=== PATIENT | female | born 1965 | race Caucasian/White ===

== ENCOUNTER → 2024-01-10 14:31 | Outpatient (REF) | payer BC, SELFPAY | LOC: HWRAD 14:31 | PROVIDERS: ATTENDING PHYSICIAN Internal Medicine | DX: L98.9 Disorder of the skin and subcutaneous tissue, unspecified (principal) | CPT/HCPCS: 73140 ==

== ENCOUNTER 2025-01-25 23:55 | Inpatient (IN) | payer OTHER, SELFPAY ==
[2025-01-25 17:09] VITALS: BP 128/63
[2025-01-25 17:36] LABS: % Basophils 0.4 % (0-2); % Eosinophils 0.5 % (0-6); % Immature Granulocytes 0.1 % (0-0.5); % Monocytes 6.8 % (1.7-9.3); % Neutrophils 72.2 % (42.2-75.2); Absolute Eosinophils 0.1 10^3/uL (0-0.7); Absolute Lymphocytes 1.9 10^3/uL (1.2-3.4); Absolute Monocytes 0.7 10^3/uL (0.1-0.6); Absolute Neutrophils 6.9 10^3/uL (1.4-6.5); Hematocrit 35.6 % (37.0-47.0); Hemoglobin 12.5 g/dL (12.0-16.0); Mean Corp Hgb Conc. 35.1 g/dL (33.0-37.0); Mean Corpuscular Hgb 32.6 pg (27.0-31.0); Mean Corpuscular Volume 92.7 fL (81.0-99.0); Mean Platelet Volume 8.7 fL (7.4-10.4); Nucleated Red Blood Cells % 0 %; Platelet Count 190 10^3/uL (130-400); Red Blood Cell Count 3.84 10^6/uL (4.20-5.40); Red Cell Dist. Width 11.9 % (11.5-14.5); Urine Albumin 3+ (Neg - Trace); Urine Bilirubin 2+ (Negative); Urine Character Slightly Cloudy (Clear); Urine Color Yellow; Urine Glucose Negative (Negative); Urine Ketone Negative (Negative); Urine Leukocyte 3+ (Negative); Urine Nitrite Positive (Negative); Urine Occult Blood 4+ (Negative); Urine Specific Gravity 1.025 (<1.030); Urine Urobilinogen 3+ (Neg - 1+); White Blood Cell Count 9.5 10^3/uL (4.8-10.8)
[2025-01-25 17:49] LABS: ALT (SGPT) 22 U/L (0-35); AST (SGOT) 25 U/L (14-36); Albumin 4.8 g/dl (3.5-5.0); Alkaline Phosphatase 65 U/L (38-126); Blood Urea Nitrogen 9 mg/dl (7-17); Calcium 9.3 mg/dl (8.4-10.2); Carbon Dioxide 25 mmol/L (22-30); Chloride 101 mmol/L (98-107); Glucose 104 mg/dl (70-99); Potassium 3.9 mmol/L (3.5-5.1); Sodium 136 mmol/L (135-145); Total Bilirubin 0.8 mg/dl (0.2-1.3); Total Protein 7.1 g/dl (6.3-8.2); eGFR > 60.00
[2025-01-25 17:50] LABS: Urine Squamous Cell 0-2 /LPF (Few)
[2025-01-25 17:51] LABS: Urine Bacteria Few (Negative); Urine White Cell 80-90 /HPF (0-5)
--- NOTE | 2025-01-25 20:45 | ED.GENMED ---
History of Present Illness
General
Chief Complaint: Abdominal Symptoms
Source: patient and spouse
Exam Limitations: none
Time Seen by Provider: 01/25/25 20:29
Nursing documentation reviewed up to this point in time: agreed with
History of Present Illness
History of Present Illness:
59-year-old female dysuria frequency diagnosed with UTI given Macrobid and that Cipro feeling pain near her urethra, also mild on her right flank she has had kidney stones before she had a urologic procedure from a urologic specialist a few years
ago on the right ureter, no fevers nausea without vomiting, drink a lot of fluids, earlier today with cranberry juice
Past History
Past History
ED Past Medical History: Arrthythmia (SVT) and Psychiatric (Anxiety, insomnia)
ED Past Surgical History: Cardiac (Radiofrequency ablation for SVT August 2011) and Urological
Social History
Tobacco: Non-smoker
Alcohol: Occasional
Drug: None
Personal:
Living: with family
Employment: Employed
Family History
Family History: CAD
Review of Systems
Review of Systems
All Other Systems: Not applicable
Constitutional: Denies fever or fatigue
Respiratory: Reports no symptoms
Cardiac: Reports no symptoms
ABD/GI: Reports abdominal pain
: Reports dysuria, frequency, flank pain and urgency
Phy Exam
Physical Exam
Physical Exam:
Physical Exam
General: 59 female nontoxic
Neck: No jaw
Heart: s1/s2 regular rate and rhythm, no murmur. equal radial pulses.
Lungs: no acute respiratory distress. clear bilaterally
Abdomen: Minimal suprapubic and right flank tenderness
Neuro: alert and oriented. no focal neurological deficits
Skin: no rash
Psychiatric: well kept. interactive and cooperative
Extremities: no edema. no calf tenderness. negative homans. good distal pulses
Course
Orders/Labs/Results
Orders:
Orders
01/25/25 17:26
Complete Blood Count/With Diff Urgent
Comprehensive Metabolic Panel Urgent
Urinalysis Reflex To Culture Urgent
Date Specimen was Collected: 01/25/25
Time Specimen was Collected: 17:17
Urine Microscopic Reflex Cult Urgent
Urine Culture Urgent
SUJATA Source: U
Specimen Description:
Date Specimen was Collected: 01/25/25
Time Specimen was Collected: 17:17
01/25/25 20:42
CT Abd/pel Without Iv Or Oral Urgent
Comment:
Reason For Exam: flakn pain uti, sp surgery on ureter
0.9% Sodium Chloride 1000 ml [Nss] 1,000 ml IV BOLUS
Ketorolac [Toradol] 30 mg IV NOW STA
01/25/25 20:49
Bladder Scan- Treatment ONCE
01/25/25 22:18
Acetaminophen 1000MG/100Ml [Ofirmev] 1,000 mg in 100 ml IV ONCE
Acetaminophen IV Indication:: ED Narcotic Naive Pt-ONCE
CefTRIAXone [Rocephin] 1,000 mg IV NOW STA
01/25/25 22:19
Diazepam [Valium] 5 mg PO NOW STA
Abnormal Lab Results
01/25/25
17:26
RBC 3.84 L 10^6/uL
(4.20-5.40)
Hct 35.6 L %
(37.0-47.0)
MCH 32.6 H pg
(27.0-31.0)
Absolute Neuts (auto) 6.9 H 10^3/uL
(1.4-6.5)
Absolute Monos (auto) 0.7 H 10^3/uL
(0.1-0.6)
Lymphocytes % 20.0 L %
(20.5-51.1)
Creatinine 0.5 L mg/dL
(0.6-1.0)
Glucose 104 H mg/dl
(70-99)
Ur Occult Blood Reflex 4+ A
(Negative)
Urine Nitrite (Reflex) Positive A
(Negative)
Urine Bilirubin 2+ A
(Negative)
Urine Urobilinogen 3+ A
(Neg - 1+)
Leukocyte Esterase Rfl 3+ A
(Negative)
Urine RBC 11-15 A /HPF
(0-2)
Urine WBC (Reflex) 80-90 A /HPF
(0-5)
Urine Bacteria (Reflex) Few A
(Negative)
Urine Albumin (Reflex) 3+ A
(Neg - Trace)
01/25/25 17:26
01/25/25 17:26
Vital Signs
Initial and Last Documented VS:
Initial Vital Signs
Temp Pulse Resp BP Pulse Ox
97.6 F 65 18 128/63 100
01/25/25 17:09 01/25/25 17:09 01/25/25 17:09 01/25/25 17:09 01/25/25 17:09
Last Documented Vital Signs
Temp Pulse Resp BP Pulse Ox
97.6 F 63 16 121/74 100
01/25/25 17:09 01/25/25 22:01 01/25/25 22:01 01/25/25 22:01 01/25/25 22:01
MDM/Problems Addressed
Differential Diagnosis Includes:
Stone UTI Harshal retention
Chronic conditions affecting care: Kidney disease
Acute Exacerbation and/or Progression of Chronic Illness: Kidney disease
*Critical Care Note
Total Time (30-74mins, 75-104mins- exclusive of procedures): Not Applicable
Update Note
Update Note:
Update labs noted urine noted she has been taking Azo [id number]-fazfgit, she had Macrobid and few doses of Cipro, CT report reviewed reviewed with patient and patient with outpatient treatment reviewed with her she prefers to stay in the hospital
states she feels unwell, does have some signs of ascending urinary tract infection to have prior surgery on the right side, fortunately there is no obstructing stone will switch to ceftriaxone
ED Attending Note
-
Portions of this chart may have been created with voice recognition software.� Occasional wrong word or��sound alike� substitutions may have occurred due to the inherent limitations of voice recognition software.
Discharge Plan
Departure
Patient Disposition: Admit
Date of Disposition: 01/25/25
Time of Disposition: 23:03
Admit to: Med/Surg
Presentation/result/management discussed w/ accepting MD/DO: Hospitalist
Patient with high blood pressure during this ER visit?: No
Condition: Fair
Discharge Problem:
Ascending urinary tract infection, Hydronephrosis
Prescriptions:
No Action
ATENOLOL
25 mg PO HS
valerian 400 MG capsule
400 mg PO HS
Interventions
Interventions:
*Risk Screen - Suicide Last Done: 01/25/25 22:01
*General Assessment Last Done: 01/25/25 22:01
*Neglect/Abuse Screening Last Done: 01/25/25 22:01
*ED COVID-19 Vaccine History Last Done: 01/25/25 22:01
IP-Nkbodm-Knxbvqytuq Assessment Last Done: 01/25/25 22:01
Discharge Date and Time
Print Language: KAZAKH
[2025-01-25] MEDS: TORADOL 30 MG IV (20:59)
[2025-01-25] MEDS: NSS 1000 IV (21:00)
[2025-01-25 22:01] VITALS: BP 121/74
[2025-01-25] MEDS: OFIRMEV 100 IV (22:27)
[2025-01-25] MEDS: ROCEPHIN 1000 MG IV (22:27)
[2025-01-25] MEDS: VALIUM 5 MG PO (22:28)
--- NOTE | 2025-01-25 23:25 | HPS.HSE ---
Family Physician
-
Family Physician: Kamille Harris
Chief Complaint
-
Back pain 4 days ago, right flank pain x 3 days with urinary pressure and nausea
History of Present Illness
59-year-old female who states approximately 4 days ago she had sudden pain in her lower back she was unsure of what she did. She then started developing urinary pressure with lower right lateral flank pain over the last 3 days along with nausea and
soft stools. She called her PCP who placed her on ciprofloxacin and Macrobid she took 2 tablets of Cipro at 5 PM and Macrobid which she also took at 5 PM. She reports she has history of kidney stones right sided 17 years ago which was thought to
leave scar tissue and then required a right sided pyeloplasty [address] Kip Caraballo at [facility]. She denies fever, vomiting, diarrhea, chest pain, palpitations, cough, shortness of breath, abdominal pain, headache.
She has past medical history of renal calculi 17 years ago, SVT status post heart ablation, renal calculi 17 years ago, pyeloplasty October 2019, seasonal allergies.
Medical History
Past Medical History
Past Medical History: Reports Other
Additional Past Medical History:
renal calculi 17 years ago
SVT status post heart ablation
renal calculi 17 years ago,
Right sided pyeloplasty October 2019
seasonal allergies.
Past Surgical History: Reports Other
Additional Past Surgical History:
Right sided pyeloplasty October 2019
Breast implants bilateral 2002
Social History
Tobacco: Non-smoker
Alcohol: Daily (1 glass of wine has not had any over the past 40 days during Lent)
Personal:
Living: With Family
Employment: Employed
Family History
Family History: Other (Father age 45 DC mother living age 83 history of dementia)
Allergies / Home Medications
Allergies reflects when Allergies were last updated in [employer].
Home Medications with original date entered in [employer]
Allergy/Medication List:
Allergies
Allergy/AdvReac Type Severity Reaction Status Date / Time
erythromycin base Allergy Mild Nausea / Verified 01/25/25 17:09
[From E-Mycin] Vomiting
Home Medications
Hydroeye 1 cap PO DAILY 01/25/25
acetaminophen 500 mg tablet 1,000 mg PO Q6HPRN PRN mild pain 01/25/25
ascorbic acid (vitamin C) 500 mg tablet (Vitamin C) 500 mg PO DAILY 01/25/25
cetirizine 10 mg tablet (Zyrtec) 10 mg PO DAILY 01/25/25
cholecalciferol (vitamin D3) 125 mcg (5,000 unit) tablet (Vitamin D3) 125 mcg PO DAILY 01/25/25
ciprofloxacin HCl 250 mg tablet 250 mg PO BID 01/25/25
cyanocobalamin (vitamin B-12) 100 mcg tablet 100 mcg PO DAILY 01/25/25
estradiol 10 mcg vaginal tablet (Yuvafem) 10 mcg vaginal [id number] PRN feeling urgency 01/25/25
magnesium oxide 400 mg PO DAILY 01/25/25
nitrofurantoin monohydrate/macrocrystals 100 mg capsule 100 mg PO BID 01/25/25
therapeutic multivitamin 1 tab PO DAILY 01/25/25
Review of Systems
-
History Source: Patient and Family ( at bedside)
A 12 point ROS was completed and negative except as noted: Yes
Constitutional: Denies Fever, Fatigue or Chills
EENT: Denies Sore Throat or Runny Nose
Respiratory: Denies Cough or Trouble Breathing
Cardiac: Denies Chest Pain, Diaphoresis, Palpitations or Syncope
Abdomen/GI: Reports Nausea and Other (Loose stool, right flank pain); Denies Abdominal Pain, Vomiting, Diarrhea, Constipated, Bloody Stools, Black Stools or Anorexia
: Reports Frequency, Flank Pain (Right) and Urgency (With pressure); Denies Dysuria, Incontinence, Difficulty Voiding, Bleeding, Dark Urine or Discharge
Musculoskeletal: Denies Joint Pain or Edema
Skin: Denies Itching or Rash
Neurological: Denies Dizzy, Headache or Weakness
Endocrine: Reports No Symptoms
Hematologic/Lymphatic: Reports No Symptoms
Psych: Reports Calm
Physical Exam
Vital Signs
Vital Signs
Temp Pulse Resp BP Pulse Ox
97.6 F 63 16 121/74 100
01/25/25 17:09 01/25/25 22:01 01/25/25 22:01 01/25/25 22:01 01/25/25 22:01
Physical Exam
General: Conversant and Other; No Fever or Chills
HEENT: NormoCephalic, Anicteric, Moist mucous membranes, PERRLA, [place] Conjunctivae and No Ptosis
Respiratory: Clear; No Wheezes, Rales, Rhonchi or Crackles
Cardiac: S1/S2 and Regular Rhythm; No Murmur, Rub, Gallop or Peripheral Edema
GI: Soft, Non Distended, Normal Bowel Sounds, Tender (Right posterior/lateral lower flank) and No Hepatosplenomegaly
Rectal: Deferred by Provider
Genito-urinary: Costovertebral angle tend (Right posterior lower lateral flank on palpation)
Musculoskeletal: No Clubbing, No Cyanosis and No Edema
Skin: Warm and Dry; No Rash or Jaundice
Neuro: AO x 3, No Motor Deficits, Nonfocal/grossly intact, Cranial Nerves Intact and No Sensory Deficits; No Slurred Speech, Facial Droop, Tremors or Sedated
Psych: Calm
Laboratory Results
-
01/25/25 17:26
01/25/25 17:
Laboratory Results
Total Bilirubin 0.8 mg/dl (0.2-1.3) 01/25/25 17:
AST 25 U/L (14-36) 01/25/25 17:
ALT 22 U/L (0-35) 01/25/25:
Alkaline Phosphatase 65 U/L (38-126) 01/25/25 17:26
Data Reviewed
-
CT Scan: Report Reviewed by me
Lab Data: Labs Reviewed by me
Impression/Plan
-
Impression/plan:
Admit to [facility]
#Symptomatic UTI/pyelonephritis with mild right sided hydroureteronephrosis
History of right sided pyeloplasty [address] Kip Caraballo at [facility]
Patient took 2 tablets ciprofloxacin 5 PM, 1 tablet Macrobid 5 PM today 01/25/2025
-UA positive nitrates leukocytes WBC 80-90 bacteria few
- Follow urine culture
- Consult urology
-IV Rocephin
-IV NSS 1 L given in ER, continue IV NSS 100 cc/h
-IV Toradol mild pain, Dilaudid moderate pain, Tylenol for fever
-Valium as needed spasm
- Follow CBC, CMP
CT abdomen pelvis without IV or oral contrast:
1. Mild right-sided hydroureteronephrosis with diffuse urothelial thickening which likely represents infection. There is no definite obstructing stone visualized
2. Mild circumferential wall thickening of the urinary bladder likely secondary to cystitis recommend correlation with urinalysis
#SVT status post heart ablation
#Seasonal allergies
- Continue Zyrtec 10 mg daily
#Hypomagnesemia
Continue Mag-Ox 400 mg daily
DVT prophylaxis
SCDs
Full code
--- NOTE | 2025-01-25 23:46 | W.PN.UPDATE ---
Update Note
Progress Note Update
This is an addendum to H&P written by Rebekah Multani on 01/25/2025. Patient seen and examined independently with MANAGER MAIL.
59-year-old female past medical history of SVT, anxiety, insomnia, nephrolithiasis with ureteral scarring with history of pyeloplasty, presenting with urinary frequency and discomfort with urination and was diagnosed with UTI and treated with
ciprofloxacin without improvement. She has right flank pain. No fever but has nausea without vomiting.
Urinalysis indicative of infection. CT abdomen pelvis shows mild right-sided hydroureteronephrosis with diffuse urothelial thickening likely representing infection without definitive obstructive stone, mild circumferential wall thickening of the
urinary bladder likely secondary to cystitis.
Presentation consistent with acute cystitis/right-sided pyelonephritis.
Urine culture pending. IV fluids. Ceftriaxone. Urology consulted.
[2025-01-26 01:35] VITALS: BP 120/71; BMI 19.5
[2025-01-26] MEDS: NSS 1000 IV (01:52)
--- NOTE | 2025-01-26 06:21 | CONS.URO ---
Consultation
-
Date/Time Consultation Performed: 01/26/2519
Performing Provider: Cas
Reason for Consultation: hydronephrosis
Medical History
History of Present Illness
ED admission note: '59-year-old female who states approximately 4 days ago she had sudden pain in her lower back she was unsure of what she did. She then started developing urinary pressure with lower right lateral flank pain over the last 3 days
along with nausea and soft stools. She called her PCP who placed her on ciprofloxacin and Macrobid she took 2 tablets of Cipro at 5 PM and Macrobid which she also took at 5 PM. She reports she has history of kidney stones right sided 17 years ago
which was thought to leave scar tissue and then required a right sided pyeloplasty [address] Kip Caraballo.'
'several UTIs'
Past Medical History
Past Medical History: Arrhythmia (SVT s/p ablation)
Past Surgical History: Other (Right sided pyeloplasty October 2019; Breast implants bilateral 2002)
Social History
Personal:
Living: With Family
Family History
Family History: Reviewed & Not Pertinent
Allergies/Home Medications
Allergies
Allergy/AdvReac Type Severity Reaction Status Date / Time
erythromycin base Allergy Mild Nausea / Verified 01/25/25 17:09
[From E-Mycin] Vomiting
Home Medications
�Medication �Instructions �Recorded �Confirmed �Type
Hydroeye 1 cap PO DAILY 01/25/25 01/25/25 History
acetaminophen 500 mg tablet 1,000 mg PO Q6HPRN PRN mild pain 01/25/25 01/25/25 History
ascorbic acid (vitamin C) 500 mg 500 mg PO DAILY 01/25/25 01/25/25 History
tablet (Vitamin C)
cetirizine 10 mg tablet (Zyrtec) 10 mg PO DAILY 01/25/25 01/25/25 History
cholecalciferol (vitamin D3) 125 125 mcg PO DAILY 01/25/25 01/25/25 History
mcg (5,000 unit) tablet (Vitamin
D3)
ciprofloxacin HCl 250 mg tablet 250 mg PO BID 01/25/25 01/25/25 History
cyanocobalamin (vitamin B-12) 100 100 mcg PO DAILY 01/25/25 01/25/25 History
mcg tablet
estradiol 10 mcg vaginal tablet 10 mcg vaginal [id number] PRN feeling 01/25/25 01/25/25 History
(Yuvafem) urgency
magnesium oxide 400 mg PO DAILY 01/25/25 01/25/25 History
nitrofurantoin 100 mg PO BID 01/25/25 01/25/25 History
monohydrate/macrocrystals 100 mg
capsule
therapeutic multivitamin 1 tab PO DAILY 01/25/25 01/25/25 History
Physical Exam
Vital Signs
Vital Signs
Temp Pulse Resp BP Pulse Ox
97.8 F 76 17 120/71 96
01/26/25 01:35 01/26/25 01:35 01/26/25 01:35 01/26/25 01:35 01/26/25 01:35
Physical Exam
adult female
General: Well Developed, Well Nourished and No Apparent Distress
GI: Soft
Genito-urinary: No Costovertebral Tend
Skin: Warm
Neuro: Awake and Alert
Psych: Calm and Intact Judgement
Assessment / Plan
-
Presumptive UTI
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
normal renal function
Rec: obtain Urine Cx results from Dr Deloris Harris's office to govern optimal antibiosis;
no current indication for urosurgical intervention
Data Reviewed
-
CT Scan: Image personally visualized and interpreted and Discussed with Patient
Lab Data: Labs Reviewed and Discussed with Patient
Old Records: Reviewed
[2025-01-26 07:15] LABS: % Basophils 0.4 % (0-2); % Eosinophils 1.9 % (0-6); % Immature Granulocytes 0.1 % (0-0.5); % Lymphocytes 25.9 % (20.5-51.1); % Monocytes 9.6 % (1.7-9.3); % Neutrophils 62.1 % (42.2-75.2); Absolute Eosinophils 0.1 10^3/uL (0-0.7); Absolute Lymphocytes 1.8 10^3/uL (1.2-3.4); Absolute Monocytes 0.7 10^3/uL (0.1-0.6); Absolute Neutrophils 4.3 10^3/uL (1.4-6.5); Hematocrit 32.2 % (37.0-47.0); Hemoglobin 11.2 g/dL (12.0-16.0); Mean Corp Hgb Conc. 34.8 g/dL (33.0-37.0); Mean Corpuscular Hgb 32.7 pg (27.0-31.0); Mean Corpuscular Volume 93.9 fL (81.0-99.0); Nucleated Red Blood Cells % 0 %; Platelet Count 179 10^3/uL (130-400); Red Blood Cell Count 3.43 10^6/uL (4.20-5.40); Red Cell Dist. Width 11.9 % (11.5-14.5); White Blood Cell Count 6.9 10^3/uL (4.8-10.8)
[2025-01-26 07:45] LABS: ALT (SGPT) 17 U/L (0-35); AST (SGOT) 21 U/L (14-36); Albumin 3.5 g/dl (3.5-5.0); Alkaline Phosphatase 63 U/L (38-126); Blood Urea Nitrogen 6 mg/dl (7-17); Calcium 8.8 mg/dl (8.4-10.2); Carbon Dioxide 23 mmol/L (22-30); Chloride 111 mmol/L (98-107); Estimated Creatinine Clearance 92 ml/min; Glucose 91 mg/dl (70-99); Potassium 3.6 mmol/L (3.5-5.1); Sodium 140 mmol/L (135-145); Total Bilirubin 0.8 mg/dl (0.2-1.3); Total Protein 5.8 g/dl (6.3-8.2); eGFR > 60.00
[2025-01-26 07:55] VITALS: BP 113/73
[2025-01-26] MEDS: VITAMIN B-12 100 MCG PO (08:53)
[2025-01-26] MEDS: THERAGRAN 1 TABLET PO (08:53)
[2025-01-26] MEDS: VITAMIN C 500 MG PO (08:53)
[2025-01-26] MEDS: VITAMIN D3 (cholecalciferol) 125 MCG PO (08:53)
[2025-01-26] MEDS: ZYRTEC 10 MG PO (08:53)
[2025-01-26] MEDS: MAGNESIUM OXIDE 500 MG PO (08:53)
--- NOTE | 2025-01-26 11:22 | W.PN.HOSP.TC ---
Today's Communication/Plan
-
see PN
Assessment / Plan
Assessment / Plan
59yo F with PMHx of nephrolithiasis with R sided pyeloplasty in 2019 came with worsening suprapubic and R flank pain, similar to the one when she had a stone passing, Ucx were sent by her PCP in the moring before admission and patient was started on
Nitrofurantoin and later Cipro for cystitis, however since symptoms worsened - patient was sent to ED. CT showed R hydro without obstruction and urology deemed these to chronic postOP changes and no surgical mgmt inicated.
A/P:
#Complicated UTI, pyelonephritis
#Chromnic R hydronephrosis
Urology followed - no Sx needed
Ceftriaxone and follow Ucx from [facility] - patient has a web portal access to results
Ucx in ED also sent
Repeat UA in 2-3 weeks with PCP
[facility]
#Hx of SVT s/p ablation
#Atopic d/o
#Hypomagnesemia
cont home meds
DVT ppxlovenox
Full code
I have spent at least 57min reviewing chart, test results, communication with consultants, family and providing direct patient care
Anticipated Discharge: 24 - 48 hours
Subjective/Interval History
-
Date of Service: January 26, 2025
Objective Data
-
Labs:
Laboratory Results
01/26/25
06:55
WBC 6.9
Hgb 11.2 L
Hct 32.2 L
Plt Count 179
Sodium 140
Potassium 3.6
Chloride 111 H
Carbon Dioxide 23
BUN 6 L
Creatinine 0.5 L
Glucose 91
Calcium 8.8
Total Bilirubin 0.8
AST 21
ALT 17
Alkaline Phosphatase 63
Vital Signs:
Vital Signs
Temp Pulse Resp BP Pulse Ox
98.6 F 69 16 113/73 98
01/26/25 07:55 01/26/25 07:55 01/26/25 07:55 01/26/25 07:55 01/26/25 07:55
I&O
01/25/25 01/26/25 01/27/25
06:59 06:59 06:59
Intake Total 0 / 0
Output Total 350 / 350
Balance -350 / -350
Review of Systems
-
History Source: Patient
All other systems: Reviewed and negative
Genitourinary: Reports Dysuria
Physical Exam
-
General: No Apparent Distress
HEENT: Normocephalic
GI: Soft and Tender (suprapubic)
Genito-urinary: Costovertebral Angle Tend (R)
Neuro: Awake, Alert, Oriented and AO x 3
Psych: Calm
[2025-01-26] MEDS: VALIUM 2 MG PO ×2 (11:28→22:00)
[2025-01-26] MEDS: TYLENOL 1000 MG PO ×2 (12:40→21:59)
--- NOTE | 2025-01-26 15:14 | CM ---
Initial assessment completed. Admitted for back pain, right flank pain x 3 days with urinary pressure and nausea.
Patient resides w/ spouse in [facility]- 7 steps to enter. Patient is independent w/ ambulation, no device required. Independent w/ ADLs. Patient has shower chair, more so for convenience. Denies SNF/HC hx. No current OP or home services at this time.
Address, point of contact and insurance verified
PCP: Kamille Harris
Pharmacy: [facility]
Plan: Home; no needs likely
[2025-01-26 15:57] VITALS: BP 114/68
[2025-01-26] MEDS: STERILE WATER FOR INJECTION 10 ML IV (21:59)
[2025-01-26] MEDS: ROCEPHIN 1000 MG IV (21:59)
[2025-01-26 23:03] VITALS: BP 100/69
[2025-01-27] MEDS: TYLENOL 1000 MG PO ×2 (04:32→11:31)
[2025-01-27 06:27] LABS: Hematocrit 33.9 % (37.0-47.0); Hemoglobin 11.6 g/dL (12.0-16.0); Mean Corp Hgb Conc. 34.2 g/dL (33.0-37.0); Mean Corpuscular Hgb 32.2 pg (27.0-31.0); Mean Corpuscular Volume 94.2 fL (81.0-99.0); Platelet Count 185 10^3/uL (130-400); White Blood Cell Count 4.8 10^3/uL (4.8-10.8)
[2025-01-27 07:11] LABS: % Basophils 0.8 % (0-2); % Eosinophils 5.5 % (0-6); % Immature Granulocytes 0.2 % (0-0.5); % Lymphocytes 51.4 % (20.5-51.1); % Monocytes 9.1 % (1.7-9.3); Absolute Eosinophils 0.3 10^3/uL (0-0.7); Absolute Lymphocytes 2.4 10^3/uL (1.2-3.4); Absolute Monocytes 0.4 10^3/uL (0.1-0.6); Absolute Neutrophils 1.6 10^3/uL (1.4-6.5); Nucleated Red Blood Cells % 0 %
[2025-01-27 07:23] VITALS: BP 128/74
[2025-01-27] MEDS: VITAMIN C 500 MG PO (08:18)
[2025-01-27] MEDS: VITAMIN B-12 100 MCG PO (08:18)
[2025-01-27] MEDS: MAGNESIUM OXIDE 500 MG PO (08:18)
[2025-01-27] MEDS: ZYRTEC 10 MG PO (08:18)
[2025-01-27] MEDS: THERAGRAN 1 TABLET PO (08:18)
[2025-01-27] MEDS: VITAMIN D3 (cholecalciferol) 125 MCG PO (08:18)
--- NOTE | 2025-01-27 10:59 | W.PN.HOSP.TC ---
Today's Communication/Plan
-
with worse R flank pain - repeat BMP to eval Cr
Assessment / Plan
Assessment / Plan
59yo F with PMHx of nephrolithiasis with R sided pyeloplasty in 2019 came with worsening suprapubic and R flank pain, similar to the one when she had a stone passing, Ucx were sent by her PCP in the moring before admission and patient was started on
Nitrofurantoin and later Cipro for cystitis, however since symptoms worsened - patient was sent to ED. CT showed R hydro without obstruction and urology deemed these to chronic postOP changes and no surgical mgmt indicated. Ucx grew E.coli sensitive
to cipro. Remained afebrile over hospital stay without leukocytosis, reasonable for outpatient mgmt
A/P:
#Complicated UTI, pyelonephritis
#Chromnic R hydronephrosis
Urology followed - no Sx needed
Ceftriaxone and d/c with cipro 500bid (QTc 407ms) for treatment of pyelonephritis
Ucx in ED also sent
Repeat UA in 2-3 weeks with PCP
Emphasized follow up with established urologist CHARLES upon d/c
#Hx of SVT s/p ablation
#Atopic d/o
#Hypomagnesemia
cont home meds
DVT ppx lovenox
Full code
I have spent at least 57min reviewing chart, test results, communication with consultants, family and providing direct patient care
Anticipated Discharge: Within 24 hours
Subjective/Interval History
-
Date of Service: January 27, 2025
Objective Data
-
Labs:
Laboratory Results
01/27/25
05:46
WBC 4.8
Hgb 11.6 L
Hct 33.9 L
Plt Count 185
Sodium Pending
Potassium Pending
Chloride Pending
Carbon Dioxide Pending
BUN Pending
Creatinine Pending
Glucose Pending
Calcium Pending
Total Bilirubin Pending
AST Pending
ALT Pending
Alkaline Phosphatase Pending
Vital Signs:
Vital Signs
Temp Pulse Resp BP Pulse Ox
98.1 F 63 18 128/74 98
01/27/25 07:23 01/27/25 07:23 01/27/25 07:23 01/27/25 07:23 01/27/25 07:23
I&O
01/26/25 01/27/25 01/28/25
06:59 06:59 06:59
Intake Total 0 / 0 2880 / 2880
Output Total 350 / 350 3550 / 3550
Balance -350 / -350 -670 / -670
Review of Systems
-
History Source: Patient
All other systems: Reviewed and negative
Genitourinary: Reports Flank Pain (R)
Physical Exam
-
General: No Apparent Distress
Neuro: Awake, Alert, Oriented and AO x 3
Psych: Calm
--- NOTE | 2025-01-27 11:25 | W.PN.URO.CBU ---
Today's Communication / Plan
-
Continue antibiotic
Outpatient follow up with Dr. Caraballo
Assessment / Plan
-
59F hx of R UPJ obstruction s/p pyeloplasty in 2019
Admitted with worsening symptoms from UTI/pyelonephritis
CT showing mild R hydronephrosis
- Dilatation of Right Collecting System: likely residual from Ureteropelvic-Junction Obstruction - pyeloplasty improves renal function and drainage but anatomy often remains abnormal with some permanent dilation
- Continue antibiotics for E coli UTI - recommend discharge on amox/clav or levofloxacin
- normal renal function
- Flank pain from pyelonephritis can persist for up to 2 weeks even after infection controlled
- No evidence of progressive systemic infection. No indication for acute intervention
- Stable for discharge from standpoint
- Outpatient follow up with Dr. Caraballo for further discussion
Diagnosis
-
Date of Service: January 27, 2025
-
Patient Diagnosis:
R UPJ obstruction s/p pyeloplasty
E coli UTI
Post Op Day:
Subjective
-
some R flank pain today but mild, no need for pain meds
Generally improved from prior to admission
Objective
-
Vital Signs
Temp Pulse Resp BP Pulse Ox
98.1 F 63 18 128/74 98
01/27/25 07:23 01/27/25 07:23 01/27/25 07:23 01/27/25 07:23 01/27/25 07:23
Intake and Output
01/26/25 01/27/25 01/28/25
06:59 06:59 06:59
Intake Total 0 / 0 2880 / 2880
Output Total 350 / 350 3550 / 3550
Balance -350 / -350 -670 / -670
Intake:
Oral fluids 0 / 0 2880 / 2880
Output:
Urine, Voided 350 / 350 3550 / 3550
Other:
Number of approximated MODERATE 1
amounts of urine
Laboratory Results
01/27/25 05:46
Physical Exam
-
General - well developed, well nourished, no acute distress
Chest - clear
Abdomen - soft, non-tender, no CVAT
[2025-01-27 11:34] LABS: Blood Urea Nitrogen 5 mg/dl (7-17); Calcium 9.4 mg/dl (8.4-10.2); Carbon Dioxide 27 mmol/L (22-30); Chloride 110 mmol/L (98-107); Estimated Creatinine Clearance 92 ml/min; Glucose 88 mg/dl (70-99); Potassium 3.7 mmol/L (3.5-5.1); Sodium 143 mmol/L (135-145); eGFR > 60.00
[2025-01-27 12:11] LABS: ALT (SGPT) 17 U/L (0-35); AST (SGOT) 21 U/L (14-36); Albumin 3.6 g/dl (3.5-5.0); Alkaline Phosphatase 59 U/L (38-126); Blood Urea Nitrogen 5 mg/dl (7-17); Calcium 9.3 mg/dl (8.4-10.2); Carbon Dioxide 25 mmol/L (22-30); Chloride 112 mmol/L (98-107); Estimated Creatinine Clearance 92 ml/min; Glucose 91 mg/dl (70-99); Potassium 4.1 mmol/L (3.5-5.1); Sodium 143 mmol/L (135-145); Total Bilirubin 0.6 mg/dl (0.2-1.3); Total Protein 6.1 g/dl (6.3-8.2); eGFR > 60.00
--- NOTE | 2025-01-27 12:52 | W.DCSUMMARY ---
Discharge Summary
Discharge Data
Date of Admission: 01/25/25
Date of Discharge: 01/27/25
-
Pending Results: No
Hospital Course
59yo F with PMHx of nephrolithiasis with R sided pyeloplasty in 2019 came with worsening suprapubic and R flank pain, similar to the one when she had a stone passing, Ucx were sent by her PCP in the moring before admission and patient was started on
Nitrofurantoin and later Cipro for cystitis, however since symptoms worsened - patient was sent to ED. CT showed R hydro without obstruction and urology deemed these to chronic postOP changes and no surgical mgmt indicated. Ucx grew E.coli sensitive
to cipro. Remained afebrile over hospital stay without leukocytosis, reasonable for outpatient mgmt. No worsening of kidney function upon d/c. Patient can have residual pain for days to week with pyelonephritis.
I have spent at least 57min reviewing chart, test results, communication with consultants, family and providing direct patient care
Patient was managed for:
#Complicated UTI, pyelonephritis
#Chromnic R hydronephrosis
#Hx of SVT s/p ablation
#Atopic d/o
#Hypomagnesemia
Discharge Plan
-
Patient Disposition: Home (Routine Discharge)
Discharge Diagnosis/Procedures: UTI
Diet: Low Cholesterol
Activity: No restrictions
Referrals:
Kamille Harris DO [Family Provider] -
Kip Caraballo MD [Non-Admitting Privileges] -
Prescriptions:
New
ciprofloxacin HCl 500 mg tablet
500 mg PO Q12H Qty: 14 0RF
phenazopyridine [Pyridium] 100 mg tablet
100 mg PO PC PRN (Reason: Pain) Qty: 6 0RF
tramadol 50 mg tablet
50 mg PO Q8H PRN (Reason: Pain) Qty: 6 0RF
Continued
cyanocobalamin (vitamin B-12) 100 mcg Tablet
100 mcg PO DAILY
therapeutic multivitamin Tablet
1 tab PO DAILY
acetaminophen 500 mg Tablet
1,000 mg PO Q6HPRN PRN (Reason: mild pain)
ascorbic acid (vitamin C) [Vitamin C] 500 mg Tablet
500 mg PO DAILY
nitrofurantoin monohyd/m-cryst 100 mg Capsule
100 mg PO BID
cholecalciferol (vitamin D3) [Vitamin D3] 125 mcg (5,000 unit) Tablet
125 mcg PO DAILY
estradiol [Yuvafem] 10 mcg Tablet
10 mcg VAGINAL [id number] PRN (Reason: feeling urgency)
Patient Comments:
01/25/25:Patiet does not have a set schedule. Varies bewtween 2-3 times a week with no set days of the week.
Hydroeye
1 cap PO DAILY
cetirizine [Zyrtec] 10 mg Tablet
10 mg PO DAILY
magnesium oxide 400 mg magnesium Tablet
400 mg PO DAILY
Discontinued
ciprofloxacin HCl 250 mg Tablet
250 mg PO BID
Discharge Orders:
Discharge Patient (As Directed); Ordered 01/27/25
Ordered By: Maikol Delong
Discharge Date and Time
Print Language: IRISH
--- NOTE | 2025-01-27 13:53 | CM ---
CM following re: discharge planning.
Reviewed pt's chart, met with pt. Pt's and son at bedside.
Discharge order noted. 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
D/C plan: home no needs. with son to transport.
[2025-01-27 15:09] VITALS: BP 110/84
[2025-01-27] MEDS: ROCEPHIN 1000 MG IV (17:09)
[2025-01-27] MEDS: STERILE WATER FOR INJECTION 10 ML IV (17:09)
== END 2025-01-27 17:47 | disposition home or self-care (01) | DRG 690 ==
LOC: 4 EAST ACU 23:55
PROVIDERS: Clinical Nurse Specialist Family Health; Student in an Organized Health Care Education/Training Program; ADMITTING PHYSICIAN Hospitalist; ATTENDING PHYSICIAN Internal Medicine; CONSULT PHYSICIAN Specialist; EMERGENCY PHYSICIAN Emergency Medicine; FAMILY PHYSICIAN Family Medicine
DX: N13.6 Pyonephrosis (principal); Q62.39 Other obstructive defects of renal pelvis and ureter; N30.00 Acute cystitis without hematuria; B96.20 Unspecified Escherichia coli [E. coli] as the cause of diseases classified elsewhere; E83.42 Hypomagnesemia; F41.9 Anxiety disorder, unspecified; G47.00 Insomnia, unspecified; Z98.82 Breast implant status; Z88.1 Allergy status to other antibiotic agents
CPT/HCPCS: 51798; 74176; 80048; 80053; 81003; 81015; 85025; 87077; 87086; 87186; 93005; 96361; 96374; 96375; 99285

== ENCOUNTER 2025-02-12 23:10 | Emergency (ER) | payer OTHER, SELFPAY ==
[2025-02-12 23:12] VITALS: BP 132/84
[2025-02-12 23:30] LABS: % Basophils 0.5 % (0-2); % Eosinophils 0.8 % (0-6); % Immature Granulocytes 0.4 % (0-0.5); % Lymphocytes 25.1 % (20.5-51.1); % Monocytes 6.8 % (1.7-9.3); % Neutrophils 66.4 % (42.2-75.2); Absolute Basophils 0.1 10^3/uL (0-0.2); Absolute Eosinophils 0.1 10^3/uL (0-0.7); Absolute Lymphocytes 2.5 10^3/uL (1.2-3.4); Absolute Monocytes 0.7 10^3/uL (0.1-0.6); Absolute Neutrophils 6.7 10^3/uL (1.4-6.5); Hematocrit 33.6 % (37.0-47.0); Hemoglobin 11.7 g/dL (12.0-16.0); Mean Corp Hgb Conc. 34.8 g/dL (33.0-37.0); Mean Corpuscular Hgb 32.8 pg (27.0-31.0); Mean Corpuscular Volume 94.1 fL (81.0-99.0); Mean Platelet Volume 8.8 fL (7.4-10.4); Nucleated Red Blood Cells % 0 %; Platelet Count 295 10^3/uL (130-400); Red Blood Cell Count 3.57 10^6/uL (4.20-5.40); Red Cell Dist. Width 12.5 % (11.5-14.5); White Blood Cell Count 10.1 10^3/uL (4.8-10.8)
[2025-02-12 23:52] LABS: ALT (SGPT) 16 U/L (0-35); AST (SGOT) 25 U/L (14-36); Albumin 4.3 g/dl (3.5-5.0); Alkaline Phosphatase 58 U/L (38-126); Blood Urea Nitrogen 6 mg/dl (7-17); Calcium 9.5 mg/dl (8.4-10.2); Carbon Dioxide 24 mmol/L (22-30); Chloride 97 mmol/L (98-107); Glucose 114 mg/dl (70-99); Lipase 80 U/L (23-300); Potassium 3.8 mmol/L (3.5-5.1); Sodium 130 mmol/L (135-145); Total Protein 6.9 g/dl (6.3-8.2); eGFR > 60.00
[2025-02-13] MEDS: MAALOX 40 PO (00:17)
--- NOTE | 2025-02-13 00:17 | ED.GENMED ---
History of Present Illness
General
Chief Complaint: Abdominal Pain
Source: patient
Exam Limitations: none
Time Seen by Provider: 02/13/25 00:08
Nursing documentation reviewed up to this point in time: agreed with
History of Present Illness
History of Present Illness:
59-year-old female history of recurrent right UTI, had surgery there, admitted recently with UTI, treated with antibiotics presents with burning in her upper abdomen with nausea after eating ana rosa, symptoms started immediately after the ana rosa,
describes a burning in her upper abdomen, use gwta-ljl-ucuiicz remedies, talk to her PCP was seen, started on Carafate Protonix,
Past History
Past History
ED Past Medical History: Arrthythmia (SVT) and Psychiatric (Anxiety, insomnia)
ED Past Surgical History: Cardiac (Radiofrequency ablation for SVT August 2011) and Urological
Social History
Tobacco: Non-smoker
Alcohol: Occasional
Drug: None
Personal:
Living: with family
Employment: Employed
Family History
Family History: CAD
Review of Systems
Review of Systems
All Other Systems: Not applicable
Phy Exam
Physical Exam
Physical Exam:
Physical Exam
General: no apparent distress, not acutely ill
Neck: No jaundice
Heart: s1/s2 regular rate and rhythm, no murmur. equal radial pulses.
Lungs: no acute respiratory distress. clear bilaterally
Abdomen:
Neuro: alert and oriented. no focal neurological deficits
Skin: no rash
Psychiatric: well kept. interactive and cooperative
Extremities: no edema.
Course
Orders/Labs/Results
Orders:
Orders
02/12/25 23:17
Complete Blood Count/With Diff Urgent
Comprehensive Metabolic Panel Urgent
Lipase Urgent
02/12/25 23:55
Electrocardiogram (*1) Urgent
Reason for Study: Abdominal Pain
EKG- Treatment ONCE
02/12/25 23:58
Mag Hydrox/Al Hydrox/Simeth [Maalox] 30 ml Phenobarb/Hyoscy/Atropine/Scop [] 10 ml PO NOW
02/13/25 00:15
Mag Hydrox/Al Hydrox/Simeth [Maalox] 30 ml .ROUTE .STK-MED ONE
Phenobarb/Hyoscy/Atropine/Scop [] 10 ml .ROUTE .STK-MED ONE
02/13/25 00:29
0.9% Sodium Chloride 1000 ml [Nss] 1,000 ml IV BOLUS
Ondansetron Injectable [Zofran] 4 mg IV NOW STA
Pantoprazole [Protonix IV] 40 mg IV NOW STA
02/13/25 00:46
Lorazepam [Ativan] 1 mg IV NOW STA
Abnormal Lab Results
02/12/25
23:17
RBC 3.57 L 10^6/uL
(4.20-5.40)
Hgb 11.7 L g/dL
(12.0-16.0)
Hct 33.6 L %
(37.0-47.0)
MCH 32.8 H pg
(27.0-31.0)
Absolute Neuts (auto) 6.7 H 10^3/uL
(1.4-6.5)
Absolute Monos (auto) 0.7 H 10^3/uL
(0.1-0.6)
Sodium 130 L mmol/L
(135-145)
Chloride 97 L mmol/L
(98-107)
BUN 6 L mg/dl
(7-17)
Creatinine 0.5 L mg/dL
(0.6-1.0)
Glucose 114 H mg/dl
(70-99)
02/12/25 23:17
02/12/25 23:17
Vital Signs
Initial and Last Documented VS:
Initial Vital Signs
Temp Pulse Resp BP Pulse Ox
97.8 F 76 26 132/84 98
02/12/25 23:12 02/12/25 23:12 02/12/25 23:12 02/12/25 23:12 02/12/25 23:12
Last Documented Vital Signs
Temp Pulse Resp BP Pulse Ox
97.8 F 76 26 132/84 98
02/12/25 23:12 02/12/25 23:12 02/12/25 23:12 02/12/25 23:12 02/12/25 23:12
*Pulse Oximetry
Patient hypoxic: no
*EKG
Interpreted by ED Provider?: Yes
Interpretation: normal
Comparison EKG: no comparison EKG present
Heart Rate: 78
Rate: normal
Rhythm: sinus
Ischemia: no ischemia
*Firmware Test Engineer Interpretation
Rate: normal
Interpretation: normal
Heart Rate: 78
Rhythm: sinus
*Critical Care Note
Total Time (30-74mins, 75-104mins- exclusive of procedures): Not Applicable
Update Note
Update Note:
2 AM patient feeling much better after fluids Zofran Protonix and lorazepam
Has seen Dr. Xavier previously, will have her continue her Protonix bland diet,
Will give her Rx for as needed lorazepam to use only sparingly
ED Attending Note
-
Portions of this chart may have been created with voice recognition software.� Occasional wrong word or��sound alike� substitutions may have occurred due to the inherent limitations of voice recognition software.
Discharge Plan
Departure
Patient Disposition: Home (Routine Discharge)
Date of Disposition: 02/13/25
Time of Disposition: 02:12
Patient with high blood pressure during this ER visit?: No
Condition: Good
Discharge Problem:
Gastritis
Instructions: Acid Reflux and GERD in Adults (DC), Gastritis (DC), [place] diet
Prescriptions:
New
ondansetron 4 mg tablet,disintegrating
4 mg PO Q8H PRN (Reason: nausea and vomiting) Qty: 20 0RF
lorazepam [Ativan] 0.5 mg tablet
0.5 mg PO BID PRN (Reason: nausea and vomiting) Qty: 10 0RF
No Action
cyanocobalamin (vitamin B-12) 100 mcg Tablet
100 mcg PO DAILY
therapeutic multivitamin Tablet
1 tab PO DAILY
acetaminophen 500 mg Tablet
1,000 mg PO Q6HPRN PRN (Reason: mild pain)
ascorbic acid (vitamin C) [Vitamin C] 500 mg Tablet
500 mg PO DAILY
nitrofurantoin monohyd/m-cryst 100 mg Capsule
100 mg PO BID
cholecalciferol (vitamin D3) [Vitamin D3] 125 mcg (5,000 unit) Tablet
125 mcg PO DAILY
estradiol [Yuvafem] 10 mcg Tablet
10 mcg VAGINAL [id number] PRN (Reason: feeling urgency)
Patient Comments:
01/25/25:Patiet does not have a set schedule. Varies bewtween 2-3 times a week with no set days of the week.
Hydroeye
1 cap PO DAILY
cetirizine [Zyrtec] 10 mg Tablet
10 mg PO DAILY
magnesium oxide 400 mg magnesium Tablet
400 mg PO DAILY
ciprofloxacin HCl 500 mg tablet
500 mg PO Q12H Qty: 14 0RF
phenazopyridine [Pyridium] 100 mg tablet
100 mg PO PC PRN (Reason: Pain) Qty: 6 0RF
tramadol 50 mg tablet
50 mg PO Q8H PRN (Reason: Pain) Qty: 6 0RF
Referrals:
Canelo Whitaker MD [Active] - Next open appointment
Kamille Harris DO [Family Provider] -
Interventions
Interventions:
*Risk Screen - Suicide Last Done: 02/12/25 23:12
*General Assessment Last Done: 02/13/25 00:25
*Neglect/Abuse Screening Last Done: 02/12/25 23:12
*ED- Fall Risk Assessment Last Done: 02/13/25 00:25
TB-Vodyoa-Nysjqltczz Assessment Last Done: 02/13/25 00:24
ED-Psychological Assessment Last Done: 02/13/25 00:24
Discharge Date and Time
Print Language: FRENCH
[2025-02-13] MEDS: ZOFRAN 4 MG IV (00:41)
[2025-02-13] MEDS: PROTONIX IV 40 MG IV (00:41)
[2025-02-13] MEDS: NSS 1000 IV (00:41)
[2025-02-13] MEDS: ATIVAN 1 MG IV (00:55)
== END 2025-02-13 02:26 | disposition home or self-care (01) ==
LOC: EMR 23:10
PROVIDERS: EMERGENCY PHYSICIAN Emergency Medicine; FAMILY PHYSICIAN Family Medicine
DX: K29.70 Gastritis, unspecified, without bleeding (principal); F41.9 Anxiety disorder, unspecified; Z87.440 Personal history of urinary (tract) infections
CPT/HCPCS: 96374; 96375; 96361; 99284; 80053; 83690; 85025; 93005

== ENCOUNTER 2025-02-18 04:47 | Emergency (ER) | payer OTHER, SELFPAY ==
[2025-02-18 04:51] VITALS: BP 125/86
[2025-02-18 05:11] LABS: % Eosinophils 0.6 % (0-6); % Immature Granulocytes 0.2 % (0-0.5); % Lymphocytes 43.9 % (20.5-51.1); % Monocytes 8.8 % (1.7-9.3); % Neutrophils 45.5 % (42.2-75.2); Absolute Basophils 0.1 10^3/uL (0-0.2); Absolute Lymphocytes 2.3 10^3/uL (1.2-3.4); Absolute Monocytes 0.5 10^3/uL (0.1-0.6); Absolute Neutrophils 2.4 10^3/uL (1.4-6.5); Hematocrit 38.5 % (37.0-47.0); Hemoglobin 13.6 g/dL (12.0-16.0); Mean Corp Hgb Conc. 35.3 g/dL (33.0-37.0); Mean Corpuscular Hgb 32.8 pg (27.0-31.0); Mean Corpuscular Volume 92.8 fL (81.0-99.0); Mean Platelet Volume 8.7 fL (7.4-10.4); Nucleated Red Blood Cells % 0 %; Platelet Count 283 10^3/uL (130-400); Red Blood Cell Count 4.15 10^6/uL (4.20-5.40); Red Cell Dist. Width 12.3 % (11.5-14.5); White Blood Cell Count 5.2 10^3/uL (4.8-10.8)
[2025-02-18 05:30] LABS: ALT (SGPT) 15 U/L (0-35); AST (SGOT) 21 U/L (14-36); Albumin 4.6 g/dl (3.5-5.0); Alkaline Phosphatase 49 U/L (38-126); Blood Urea Nitrogen 3 mg/dl (7-17); Calcium 10.1 mg/dl (8.4-10.2); Carbon Dioxide 27 mmol/L (22-30); Chloride 102 mmol/L (98-107); Glucose 109 mg/dl (70-99); Lipase 68 U/L (23-300); Potassium 3.9 mmol/L (3.5-5.1); Sodium 137 mmol/L (135-145); Total Bilirubin 1.3 mg/dl (0.2-1.3); Total Protein 7.5 g/dl (6.3-8.2); eGFR > 60.00
[2025-02-18 06:52] LABS: Urine Albumin 1+ (Neg - Trace); Urine Bilirubin Negative (Negative); Urine Character Clear (Clear); Urine Color Yellow; Urine Glucose Negative (Negative); Urine Ketone Negative (Negative); Urine Leukocyte Negative (Negative); Urine Nitrite Negative (Negative); Urine Occult Blood 1+ (Negative); Urine Urobilinogen Negative (Neg - 1+)
--- NOTE | 2025-02-18 07:13 | ED.GENMED ---
History of Present Illness
General
Chief Complaint: Abdominal Pain
Source: patient
Time Seen by Provider: 02/18/25 06:47
History of Present Illness
History of Present Illness:
59-year-old female presents to the emergency room complaining of upper abdominal pain which she describes as a burning discomfort. She also has nausea. She is not vomiting. Patient states symptoms began about a week ago after consuming lemon
juice and olive oil which she was taking as a sort of GI cleanse. She developed the epigastric pain shortly thereafter. She was prescribed pantoprazole and Carafate by her primary care doctor the next day. This did not help significantly and so
she had an emergency room visit during which time she had a GI cocktail, IV pantoprazole, antiemetics as well as a dose of lorazepam. She states the lorazepam really helped her symptoms. She was discharged with a couple pills to get her through
until her GI symptoms resolved. She has been taking it each evening with improvement of her symptoms but now has no more lorazepam. Patient also was taking milk of magnesia. She has noted black stools after starting this. Patient highly
concerned that she might have a bleeding ulcer. Patient endorses poor oral intake due to anorexia. She states she is lost 8 pounds over the past week.
Past History
Past History
ED Past Medical History: Arrthythmia (SVT) and Psychiatric (Anxiety, insomnia)
ED Past Surgical History: Cardiac (Radiofrequency ablation for SVT August 2011) and Urological
Social History
Tobacco: Non-smoker
Alcohol: Occasional
Drug: None
Personal:
Living: with family
Employment: Employed
Family History
Family History: CAD
Phy Exam
Physical Exam
Physical Exam:
General: Awake, Alert, Oriented X3. No acute distress.
Vitals: unremarkable
Head: Atraumatic
Eyes: Pupils equal, EOMI
Throat: Airway intact, no exudates
Neck: Trachea midline
Lungs: Clear and equal b/l
Heart: Regular rate, no murmurs
Abd: Soft, minimal upper abdominal discomfort to palpation, no pulsatile mass
Rectal: Heme-negative dark stool
Neuro: Nonfocal
Skin: Warm, dry, no rash
Extremities: pulses equal b/l, no edema
Course
Orders/Labs/Results
Orders:
Orders
02/18/25 05:00
Complete Blood Count/With Diff Urgent
Comprehensive Metabolic Panel Urgent
Lipase Urgent
02/18/25 06:03
Urinalysis Reflex To Culture Urgent
Date Specimen was Collected: 02/18/25
Time Specimen was Collected: 04:56
Urine Microscopic Reflex Cult Urgent
02/18/25 07:12
CT Abd/pel W Iv And Oral Contr Urgent
Comment:
Reason For Exam: upper abd pain
0.9% Sodium Chloride 1000 ml [Nss] 1,000 ml IV BOLUS
Diphenhydramine [Benadryl] 25 mg IV NOW STA
Iohexol [Omnipaque] See Protocol PO NOW STA
Metoclopramide [Reglan] 10 mg IV NOW STA
Abnormal Lab Results
02/18/25 02/18/25
05:00 06:03
RBC 4.15 L 10^6/uL
(4.20-5.40)
MCH 32.8 H pg
(27.0-31.0)
BUN 3 L mg/dl
(7-17)
Glucose 109 H mg/dl
(70-99)
Ur Occult Blood Reflex 1+ A
(Negative)
Urine Albumin (Reflex) 1+ A
(Neg - Trace)
02/18/25 05:00
02/18/25 05:00
Vital Signs
Initial and Last Documented VS:
Initial Vital Signs
Temp Pulse Resp BP Pulse Ox
97.9 F 84 18 125/86 98
02/18/25 04:51 02/18/25 04:51 02/18/25 04:51 02/18/25 04:51 02/18/25 04:51
Last Documented Vital Signs
Temp Pulse Resp BP Pulse Ox
98.6 F 72 16 121/72 99
02/18/25 10:02 02/18/25 10:02 02/18/25 10:02 02/18/25 10:02 02/18/25 10:02
MDM/Problems Addressed
Differential Diagnosis Includes:
Gastritis, peptic ulcer disease, duodenal ulcer, pancreatitis
MDM/Problems Addressed:
Patient presents with continued epigastric pain and heartburn. Workup here revealed no evidence of an unstable process. Imaging in the form of a CAT scan was reassuring. Recommend patient continue her pantoprazole, take Carafate on a regular
basis, stick to a bland diet and follow-up with GI as an outpatient
*Radiology
Radiology exam reviewed: radiology read reviewed
*Pulse Oximetry
Patient hypoxic: no
*Critical Care Note
Total Time (30-74mins, 75-104mins- exclusive of procedures): Not Applicable
ED Attending Note
-
Portions of this chart may have been created with voice recognition software.� Occasional wrong word or��sound alike� substitutions may have occurred due to the inherent limitations of voice recognition software.
Discharge Plan
Departure
Patient Disposition: Home (Routine Discharge)
Date of Disposition: 02/18/25
Time of Disposition: 12:16
Patient with high blood pressure during this ER visit?: No
Condition: Good
Discharge Problem:
Abdominal pain, Gastritis
Instructions: Gastritis - ED discharge instructions, Abdominal Pain
Prescriptions:
No Action
cyanocobalamin (vitamin B-12) 100 mcg Tablet
100 mcg PO DAILY
therapeutic multivitamin Tablet
1 tab PO DAILY
acetaminophen 500 mg Tablet
1,000 mg PO Q6HPRN PRN (Reason: mild pain)
ascorbic acid (vitamin C) [Vitamin C] 500 mg Tablet
500 mg PO DAILY
nitrofurantoin monohyd/m-cryst 100 mg Capsule
100 mg PO BID
cholecalciferol (vitamin D3) [Vitamin D3] 125 mcg (5,000 unit) Tablet
125 mcg PO DAILY
estradiol [Yuvafem] 10 mcg Tablet
10 mcg VAGINAL [id number] PRN (Reason: feeling urgency)
Patient Comments:
01/25/25:Patiet does not have a set schedule. Varies bewtween 2-3 times a week with no set days of the week.
Hydroeye
1 cap PO DAILY
cetirizine [Zyrtec] 10 mg Tablet
10 mg PO DAILY
magnesium oxide 400 mg magnesium Tablet
400 mg PO DAILY
ciprofloxacin HCl 500 mg tablet
500 mg PO Q12H Qty: 14 0RF
phenazopyridine [Pyridium] 100 mg tablet
100 mg PO PC PRN (Reason: Pain) Qty: 6 0RF
tramadol 50 mg tablet
50 mg PO Q8H PRN (Reason: Pain) Qty: 6 0RF
ondansetron 4 mg tablet,disintegrating
4 mg PO Q8H PRN (Reason: nausea and vomiting) Qty: 20 0RF
lorazepam [Ativan] 0.5 mg tablet
0.5 mg PO BID PRN (Reason: nausea and vomiting) Qty: 10 0RF
Activity Restrictions/Additional Instructions:
Continue taking the pantoprazole twice a day. You should take the carafate up to 4 times a day. Use Miralax for constipation to avoid the black discoloration of stools
Interventions
Interventions:
*Risk Screen - Suicide Last Done: 02/18/25 04:51
*General Assessment Last Done: 02/18/25 04:51
*Neglect/Abuse Screening Last Done: 02/18/25 04:51
*ED- Fall Risk Assessment Last Done: 02/18/25 06:09
*ED COVID-19 Vaccine History Last Done: 02/18/25 06:09
*Nursing Disposition Last Done: 02/18/25 12:26
KE-Djiwkq-Swuzzyebij Assessment Last Done: 02/18/25 07:57
Discharge Date and Time
Discharge Date/Time: 02/18/25 12:28
Print Language: MACEDONIAN
[2025-02-18] MEDS: OMNIPAQUE 50 ML PO (07:24)
[2025-02-18] MEDS: BENADRYL 25 MG IV (07:24)
[2025-02-18] MEDS: REGLAN 10 MG IV (07:24)
[2025-02-18] MEDS: NSS 1000 IV (07:25)
[2025-02-18 07:35] VITALS: BMI 19.6
[2025-02-18 07:39] VITALS: BP 136/81
[2025-02-18 08:05] LABS: Urine Red Blood Cell 0-2 /HPF (0-2); Urine White Cell 0-2 /HPF (0-5)
[2025-02-18 10:02] VITALS: BP 121/72
== END 2025-02-18 12:28 | disposition home or self-care (01) ==
LOC: EMR 04:47
PROVIDERS: Emergency Medicine; EMERGENCY PHYSICIAN Emergency Medicine
DX: K29.00 Acute gastritis without bleeding (principal); R10.13 Epigastric pain; R63.0 Anorexia; F41.9 Anxiety disorder, unspecified; Z88.1 Allergy status to other antibiotic agents
CPT/HCPCS: 99284; 96375; 96361; 96374; 74177; 80053; 81003; 81015; 83690; 85025; Q9967

== ENCOUNTER → 2025-03-06 09:47 | Outpatient (REF) | payer OTHER, SELFPAY | LOC: HWRAD 09:47 | PROVIDERS: ATTENDING PHYSICIAN Family Medicine; REFERRING PHYSICIAN Internal Medicine Gastroenterology | DX: R10.13 Epigastric pain (principal) | CPT/HCPCS: 76700 ==

== ENCOUNTER 2025-03-10 08:17 | Emergency (ER) | payer OTHER, SELFPAY ==
[2025-03-10 08:21] VITALS: BP 132/84
--- NOTE | 2025-03-10 09:53 | ED.GENMED ---
History of Present Illness
General
Chief Complaint: Abdominal Symptoms
Source: patient and spouse
Exam Limitations: none
Time Seen by Provider: 03/10/25 08:57
History of Present Illness
History of Present Illness:
See MDM
Past History
Past History
ED Past Medical History: Arrthythmia (SVT) and Psychiatric (Anxiety, insomnia)
ED Past Surgical History: Cardiac (Radiofrequency ablation for SVT August 2011) and Urological
Social History
Tobacco: Non-smoker
Alcohol: Occasional
Drug: None
Personal:
Living: with family
Employment: Employed
Family History
Family History: CAD
Phy Exam
Physical Exam
Physical Exam:
See MDM
Course
Orders/Labs/Results
Orders:
Orders
03/10/25 09:52
0.9% Sodium Chloride 1000 ml [Nss] 1,000 ml IV BOLUS
HydrOXYZINE [Atarax] 50 mg PO NOW STA
03/10/25 10:09
Complete Blood Count/With Diff Urgent
Comprehensive Metabolic Panel Urgent
Lactic Acid Q4H
Comment: CANCEL 2nd LACTIC ACID IF 1st LACTIC ACID IS LESS THAN 2
Lipase Urgent
Magnesium Urgent
TSH Reflex To Free T4 Urgent
Urinalysis Reflex To Culture Urgent
Date Specimen was Collected: 03/10/25
Time Specimen was Collected: 09:56
Blood Culture Q30M
SUJATA Source: Blood/Venous
Specimen Description:
03/10/25 10:30
Blood Culture Q30M
SUJATA Source: Blood/Venous
Specimen Description:
03/10/25 14:00
Lactic Acid Q4H
Comment: CANCEL 2nd LACTIC ACID IF 1st LACTIC ACID IS LESS THAN 2
Abnormal Lab Results
03/10/25
10:09
RBC 4.05 L 10^6/uL
(4.20-5.40)
MCH 32.8 H pg
(27.0-31.0)
BUN 5 L mg/dl
(7-17)
Creatinine 0.5 L mg/dL
(0.6-1.0)
Albumin 5.1 H g/dl
(3.5-5.0)
03/10/25 10:09
03/10/25 10:09
Vital Signs
Initial and Last Documented VS:
Initial Vital Signs
Temp Pulse Resp BP Pulse Ox
98.2 F 79 16 132/84 98
03/10/25 08:21 03/10/25 08:21 03/10/25 08:21 03/10/25 08:21 03/10/25 08:21
Last Documented Vital Signs
Temp Pulse Resp BP Pulse Ox
98.2 F 79 16 132/84 98
03/10/25 08:21 03/10/25 08:21 03/10/25 08:21 03/10/25 08:21 03/10/25 08:21
MDM/Problems Addressed
Differential Diagnosis Includes:
HPI and MDM Narrative:
59-year-old female presenting back to the emergency department with nausea, generalized abdominal pain and trouble eating. This has been an ongoing issue for the past several weeks. Patient is starting to get frustrated because she has had
negative workups including CT abdomen/pelvis, lab work, abdominal ultrasound and recent EGD. She has been compliant with PPI and Carafate but symptoms are persistent. Patient is also worried that her recent ciprofloxacin prescription has not
appropriately treating her urinary symptoms.
On my exam, patient is well-appearing and nontoxic. She is a very soft abdomen. She seems hydrated. We had a very long discussion about her recent negative workups being very reassuring. at bedside is also concerned about ongoing
anxiety. Patient does acknowledge that she is somewhat anxious but she is unsure if this is related to her symptoms rather her anxiety causing her symptoms. Regardless, we will repeat blood work and urinalysis. Will give dose of hydroxyzine and
will provide IV fluids. Patient does have upcoming follow-up with therapist.
Physical exam
General: Well appearing and non-toxic
HEENT: protecting airway. Moist mucous membranes
Neck: appears supple
CV: No evidence of cyanosis
Resp: No accessory muscle use
Abd: Non-distended. Soft and nontender
Extremities: No deformities
Neuro: alert
Psych: Mildly anxious
Skin: Intact
Problems Addressed including Acute and Chronic Conditions affecting care:
1. Ongoing abdominal pain
Acuity: acute
Prognosis: stable
Details: With recent negative diagnostic workup, doubt any surgical or infectious pathology. I had a long discussion indicating this could be mental health related. Patient is very receptive to this. Regardless, we will repeat blood work and
urinalysis
Updates
Patient feeling much better after hydroxyzine. Blood work without clinically relevant abnormalities. They feel comfortable going home and happy with workup
Differential Diagnosis (but not limited to): Reflux, pancreatitis, UTI, anxiety
Testing considered: Repeat CT abdomen/pelvis but she has no significant abdominal tenderness on my exam
Drug therapy (if applicable): OTC meds, please see d/c instruction regarding Rx drugs
Amount and/or Complexity of Data Reviewed
Clinical info obtained from: Patient
External data reviewed: Recent workup for abdominal pain with negative CT and EGD
Labs I independently reviewed (but not limited to): Lactic acid and white blood cell count normal. Urinalysis negative
Radiology: N/A
Pulse Ox: not hypoxic
EKG independently reviewed: N/A
Product Managent Intern: N/A
Critical Care: N/A
Risk of Complication:
Social Determinants of health: Good social support
Discussed with other providers: N/A
Escalation of Care includes Admit/Obs: After being observed in the Emergency Department, pt stable for discharge.
Occasional wrong word or 'sound a like' substitutions may have occurred due to the inherent limitations of voice recognition software. Read the chart carefully and recognize, using context, where substitutions have occurred.
*Critical Care Note
Total Time (30-74mins, 75-104mins- exclusive of procedures): Not Applicable
ED Attending Note
-
Portions of this chart may have been created with voice recognition software.� Occasional wrong word or��sound alike� substitutions may have occurred due to the inherent limitations of voice recognition software.
Discharge Plan
Departure
Patient Disposition: Home (Routine Discharge)
Date of Disposition: 03/10/25
Time of Disposition: 12:15
Patient with high blood pressure during this ER visit?: No
Discharge Problem:
Abdominal pain
Instructions: Abdominal Pain
Prescriptions:
New
hydroxyzine HCl 25 mg tablet
50 mg PO BID PRN (Reason: anxiety ) Qty: 30 0RF
No Action
cyanocobalamin (vitamin B-12) 100 mcg Tablet
100 mcg PO DAILY
therapeutic multivitamin Tablet
1 tab PO DAILY
acetaminophen 500 mg Tablet
1,000 mg PO Q6HPRN PRN (Reason: mild pain)
ascorbic acid (vitamin C) [Vitamin C] 500 mg Tablet
500 mg PO DAILY
nitrofurantoin monohyd/m-cryst 100 mg Capsule
100 mg PO BID
cholecalciferol (vitamin D3) [Vitamin D3] 125 mcg (5,000 unit) Tablet
125 mcg PO DAILY
estradiol [Yuvafem] 10 mcg Tablet
10 mcg VAGINAL [id number] PRN (Reason: feeling urgency)
Patient Comments:
01/25/25:Patiet does not have a set schedule. Varies bewtween 2-3 times a week with no set days of the week.
Hydroeye
1 cap PO DAILY
cetirizine [Zyrtec] 10 mg Tablet
10 mg PO DAILY
magnesium oxide 400 mg magnesium Tablet
400 mg PO DAILY
ciprofloxacin HCl 500 mg tablet
500 mg PO Q12H Qty: 14 0RF
phenazopyridine [Pyridium] 100 mg tablet
100 mg PO PC PRN (Reason: Pain) Qty: 6 0RF
tramadol 50 mg tablet
50 mg PO Q8H PRN (Reason: Pain) Qty: 6 0RF
ondansetron 4 mg tablet,disintegrating
4 mg PO Q8H PRN (Reason: nausea and vomiting) Qty: 20 0RF
lorazepam [Ativan] 0.5 mg tablet
0.5 mg PO BID PRN (Reason: nausea and vomiting) Qty: 10 0RF
Referrals:
Kamille Harris DO [Family Provider, Family Practice]
Activity Restrictions/Additional Instructions:
Please return for any worsening symptoms.
You may return at any time if you have further concerns.
Please follow up with your doctor at the first available appointment, preferably this week.
As we discussed, there is still not a clear reasoning for your abdominal pain. I am glad that the hydroxyzine is helping. Please discuss this further with the therapist and your primary care doctor.
Interventions
Interventions:
*Risk Screen - Suicide Last Done: 03/10/25 08:21
*General Assessment Last Done: 03/10/25 08:30
*Neglect/Abuse Screening Last Done: 03/10/25 08:21
Discharge Date and Time
Print Language: FRISIAN
[2025-03-10] MEDS: NSS 1000 IV (10:44)
[2025-03-10 10:45] LABS: % Basophils 0.3 % (0-2); % Eosinophils 0.1 % (0-6); % Immature Granulocytes 0.3 % (0-0.5); % Lymphocytes 21.9 % (20.5-51.1); % Monocytes 6.6 % (1.7-9.3); % Neutrophils 70.8 % (42.2-75.2); Absolute Lymphocytes 1.6 10^3/uL (1.2-3.4); Absolute Monocytes 0.5 10^3/uL (0.1-0.6); Absolute Neutrophils 5.3 10^3/uL (1.4-6.5); Hematocrit 37.7 % (37.0-47.0); Hemoglobin 13.3 g/dL (12.0-16.0); Mean Corp Hgb Conc. 35.3 g/dL (33.0-37.0); Mean Corpuscular Hgb 32.8 pg (27.0-31.0); Mean Corpuscular Volume 93.1 fL (81.0-99.0); Mean Platelet Volume 8.8 fL (7.4-10.4); Nucleated Red Blood Cells % 0 %; Platelet Count 333 10^3/uL (130-400); Red Blood Cell Count 4.05 10^6/uL (4.20-5.40); Red Cell Dist. Width 12.1 % (11.5-14.5); White Blood Cell Count 7.5 10^3/uL (4.8-10.8)
[2025-03-10] MEDS: ATARAX 50 MG PO (10:45)
[2025-03-10 10:49] LABS: Urine Albumin Negative (Neg - Trace); Urine Bilirubin Negative (Negative); Urine Character Clear (Clear); Urine Color Yellow; Urine Glucose Negative (Negative); Urine Ketone Negative (Negative); Urine Leukocyte Negative (Negative); Urine Nitrite Negative (Negative); Urine Occult Blood Negative (Negative); Urine Urobilinogen Negative (Neg - 1+); Urine pH 6.5 (5.0-9.0)
[2025-03-10 11:03] LABS: Lactic Acid 0.9 mmol/L (0.7-2.0)
[2025-03-10 11:04] LABS: ALT (SGPT) 18 U/L (0-35); AST (SGOT) 21 U/L (14-36); Albumin 5.1 g/dl (3.5-5.0); Alkaline Phosphatase 51 U/L (38-126); Blood Urea Nitrogen 5 mg/dl (7-17); Calcium 10.1 mg/dl (8.4-10.2); Carbon Dioxide 27 mmol/L (22-30); Chloride 103 mmol/L (98-107); Glucose 91 mg/dl (70-99); Lipase 72 U/L (23-300); Magnesium 2.1 mg/dl (1.6-2.3); Potassium 4.3 mmol/L (3.5-5.1); Sodium 138 mmol/L (135-145); Total Bilirubin 0.8 mg/dl (0.2-1.3); Total Protein 8.1 g/dl (6.3-8.2); eGFR > 60.00
[2025-03-10 11:10] VITALS: BP 129/73
[2025-03-10 11:49] LABS: TSH Reflex To Free T4 0.83 uIU/ml (0.47-4.68)
[2025-03-10 12:00] VITALS: BP 129/75
== END 2025-03-10 12:33 | disposition home or self-care (01) ==
LOC: EMR 08:17
PROVIDERS: EMERGENCY PHYSICIAN Student in an Organized Health Care Education/Training Program; FAMILY PHYSICIAN Family Medicine
DX: R10.84 Generalized abdominal pain (principal); R11.0 Nausea; F41.9 Anxiety disorder, unspecified
CPT/HCPCS: 96360; 99284; 80053; 81003; 83605; 83690; 83735; 84443; 85025; 87040